=== PATIENT | female | born 1955 | race Caucasian/White ===

== ENCOUNTER 2018-09-16 19:34 | Emergency (ER) | payer OTHER ==
[2018-09-17] MEDS: SOD CHLORIDE 0.9% 500 ML IV (03:01)
[2018-09-17] MEDS: ONDANSETRON 4 MG INJ IV (03:01)
[2018-09-17] MEDS: morphine 4 MG/ML VIAL IV (03:02)
[2018-09-17 03:09] LABS: ADD MAN DIFF? NO
[2018-09-17 03:12] LABS: URINE BLOOD (Dip) POC Trace-lysed (NEGATIVE); URINE GLUCOSE (Dip) POC Negative (NEGATIVE); URINE KETONES (Dip) POC Negative (NEGATIVE); URINE LEUKOCYTE EST (Dip) POC 1+ (NEGATIVE); URINE NITRITE (Dip) POC Negative (NEGATIVE); URINE TOTAL PROTEIN POC Negative (NEGATIVE)
[2018-09-17 03:12] LABS: URINE PH (Dip) POC 5.5 (5.0-8.5)
[2018-09-17 03:48] LABS: ADD UMIC YES; ALANINE AMINOTRANSFERASE 8 IU/L (13-69); ALBUMIN 4.4 g/dl (3.3-4.9); ALBUMIN/GLOBULIN RATIO 1.29; ALKALINE PHOSPHATASE 73 IU/L (42-121); ANION GAP 9 (5-13); ASPARTATE AMINO TRANSFERASE 14 IU/L (15-46); BILIRUBIN,INDIRECT 1.4 mg/dl (0-1.1); BILIRUBIN,TOTAL 1.4 mg/dl (0.2-1.3); BLOOD UREA NITROGEN 9 mg/dl (7-20); CALCIUM 9.6 mg/dl (8.4-10.2); CARBON DIOXIDE 28 mmol/L (21-31); CHLORIDE 108 mmol/L (97-110); CREATININE 0.54 mg/dl (0.44-1.00); Estimated GFR > 60 mL/min (>60); GLUCOSE 106 mg/dl (70-220); LIPASE 26 U/L (23-300); POTASSIUM 3.6 mmol/L (3.5-5.1); SODIUM 145 mmol/L (135-144); TOTAL PROTEIN 7.8 g/dl (6.1-8.1); UR ASCORBIC ACID NEGATIVE (NEGATIVE); UR BILIRUBIN (Dip) NEGATIVE (NEGATIVE); UR BLOOD (Dip) 1+ mg/dL (NEGATIVE); UR CLARITY CLEAR (CLEAR); UR COLOR YELLOW (YELLOW); UR GLUCOSE (Dip) NEGATIVE (NEGATIVE); UR KETONES (Dip) TRACE mg/dL (NEGATIVE); UR LEUKOCYTE ESTERASE (Dip) 2+ Leu/ul (NEGATIVE); UR MUCUS FEW /HPF (NONE SEEN); UR NITRITE (Dip) NEGATIVE (NEGATIVE); UR RBC 3 /HPF (0-5); UR SPECIFIC GRAVITY (Dip) 1.013 (1.003-1.030); UR TOTAL PROTEIN (Dip) NEGATIVE (NEGATIVE); UR UROBILINOGEN (Dip) NEGATIVE (NEGATIVE); UR WBC 22 /HPF (0-5)
[2018-09-17 04:11] LABS: WHITE BLOOD COUNT 6.2 10^3/ul (4.8-10.8)
[2018-09-17 04:11] LABS: BASOPHILS % 0.3 % (0.0-2.0); HEMATOCRIT 37.3 % (37.0-47.0); HEMOGLOBIN 12.5 g/dl (12.0-16.0); LYMPHOCYTES # 1.5 10^3/ul (0.8-2.9); LYMPHOCYTES % 24.4 % (15.0-51.0); MEAN CORPUSCULAR HEMOGLOBIN 29.6 pg (29.0-33.0); MEAN CORPUSCULAR HGB CONC 33.5 g/dl (32.0-37.0); MEAN CORPUSCULAR VOLUME 88.2 fl (82.0-101.0); MEAN PLATELET VOLUME 12.2 fl (7.4-10.4); MONOCYTE # 0.4 10^3/ul (0.3-0.9); MONOCYTES % 6.6 % (0.0-11.0); NEUTROPHIL # 4.2 10^3/ul (1.6-7.5); NEUTROPHILS % 68.4 % (39.0-77.0); PLATELET COUNT 232 10^3/UL (140-415); RED BLOOD COUNT 4.23 10^6/ul (4.20-5.40); RED CELL DISTRIBUTION WIDTH 13.5 % (11.5-14.5)
[2018-09-17] MEDS: HYDROmorphONE 1 MG/ML SYG IV (04:19)
[2018-09-17] MEDS: metroNIDAZOLE 500 MG/NS (PMX) 100 ML IVPB (05:34)
[2018-09-17] MEDS: CIPROFLOXACIN 400MG/D5W 200 ML IVPB (06:29)
[2018-09-17] MEDS: HYDROCODONE/APAP (5/325) TAB PO (11:39)
== END 2018-09-17 12:14 | disposition home or self-care (01) ==
LOC: E/R 19:34
DX: K57.32 Diverticulitis of large intestine without perforation or abscess without bleeding (principal); N20.0 Calculus of kidney
CPT/HCPCS: 36415; 71045; 74176; 80053; 81001; 81003; 83690; 85025; 96365; 96375; 99285-25

== ENCOUNTER 2018-10-29 12:18 | Day surgery (SDC) | payer OTHER ==
[2018-10-29] MEDS ORDERED: FENTAnyl 50 MCG/ML VIAL (14:44)
[2018-10-29] MEDS ORDERED: PROPOFOL 20 ML (14:44)
[2018-10-29] MEDS ORDERED: ONDANSETRON 4 MG INJ IV (15:00)
[2018-10-29] MEDS ORDERED: FENTAnyl 50 MCG/ML VIAL IV (15:00)
== END 2018-10-29 16:48 | disposition home or self-care (01) ==
LOC: GIL 12:18
DX: Z12.11 Encounter for screening for malignant neoplasm of colon (principal); D12.0 Benign neoplasm of cecum; K57.30 Diverticulosis of large intestine without perforation or abscess without bleeding; K29.50 Unspecified chronic gastritis without bleeding; E03.9 Hypothyroidism, unspecified
CPT/HCPCS: 43239; 88305; 88312; 88313